=== PATIENT | male | born 1965 | race Caucasian/White ===

== ENCOUNTER 2020-12-19 20:46 | Emergency (ER) | payer BC ==
[2020-12-19] MEDS ORDERED: Sodium Chloride 0.9% 10 ML Syringe FLUSH PRN (21:45)
[2020-12-19] MEDS ORDERED: Lactated Ringers 1,000 ML IV SCH (21:45)
--- NOTE | 2020-12-19 21:50 | EDM.PDOC ---
ED HPI GENERAL MEDICAL PROBLEM - General Chief Complaint: Abdominal Pain Stated Complaint: R LOWER ABDOMINAL PAIN Time Seen by Provider: 12/19/20 21:37 Source of Information: Reports: Patient, Family, RN Notes Reviewed History Limitations: Reports: No Limitations - History of Present Illness INITIAL COMMENTS - FREE TEXT/NARRATIVE: 54-year-old gentleman presents emergency department day complaint of abdominal pain. He states his abdominal pain for about a week it has progressively gotten worse last night most intense right lower quadrant the pain has improved somewhat this morning he has pain with a bowel movement. No nausea no vomiting no shortness of breath or chest pain no symptomatologies history abdominal surgery hernia repair several years ago Right Lower Abdomen Pain Score (Numeric/FACES): 3 - Related Data Allergies Allergy/AdvReac Type Severity Reaction Status Date / Time No Known Allergies Allergy Verified 12/19/20 21:26 Home Meds: Home Meds NK [No Known Home Meds] 12/19/20 [History] Past Medical History Cardiovascular History: Reports: Hypertension - Infectious Disease History Infectious Disease History: Reports: Chicken Pox - Past Surgical History GI Surgical History: Reports: Hernia, Inguinal Social & Family History - Tobacco Use Tobacco Use Status *Q: Never Tobacco User Second Hand Smoke Exposure: No - Caffeine Use Caffeine Use: Reports: None - Alcohol Use Days Per Week of Alcohol Use: 4 Number of Drinks Per Day: 3 Total Drinks Per Week: 12 - Recreational Drug Use Recreational Drug Use: No ED ROS GENERAL - Review of Systems Review Of Systems: See Below Constitutional: Reports: No Symptoms Respiratory: Reports: No Symptoms Cardiovascular: Reports: No Symptoms GI/Abdominal: Reports: Abdominal Pain, Flatus. Denies: Constipation, Nausea, Vomiting : Reports: No Symptoms ED EXAM, GI/ABD - Physical Exam Exam: See Below Exam Limited By: No Limitations General Appearance: Alert, WD/WN, No Apparent Distress Respiratory/Chest: No Respiratory Distress GI/Abdominal Exam: Soft, No Distention, No Abnormal Bruit, Tender (rlq) Course - Vital Signs Last Recorded V/S: Last Vital Signs Temp 97.5 F 12/19/20 21:44 Pulse 65 12/19/20 21:44 Resp 12 12/19/20 21:44 BP 162/91 H 12/19/20 21:44 Pulse Ox 96 12/19/20 21:44 - Orders/Labs/Meds Orders: Active Orders 24 hr Category Date Time Status Peripheral IV Care [RC] . DIRECTED Care 12/19/20 21:45 Active Iopamidol [Isovue-300 (61%)] Med 12/19/20 22:05 Active 134 ml IV . DIRECTED PRN Lactated Ringers [Ringers, Lactated] 1,000 ml Med 12/19/20 21:45 Active IV ASDIRECTED Sodium Chloride 0.9% [Normal Saline] 100 ml Med 12/19/20 22:15 Active IV ASDIRECTED Sodium Chloride 0.9% [Saline Flush] Med 12/19/20 21:45 Active 10 ml FLUSH ASDIRECTED PRN Peripheral IV Insertion Adult [OM.PC] Urgent Oth 12/19/20 21:45 Ordered Medication Orders Lactated Ringer's (Ringers, Lactated) 1,000 mls @ 500 mls/hr IV ASDIRECTED HERNAN Last Admin: 12/19/20 22:27 Dose: 500 mls/hr Documented by: REGGIE Sodium Chloride (Normal Saline) 100 mls @ 3 mls/sec IV ASDIRECTED HERNAN Last Admin: 12/19/20 22:28 Dose: 3 mls/sec Documented by: TONYA Iopamidol (Iopamidol 612 Mg/Ml 150 Ml Bottle) 134 ml IV . DIRECTED PRN PRN Reason: RADIOLOGY EXAM Stop: 12/20/20 22:06 Last Admin: 12/19/20 22:28 Dose: 134 ml Documented by: ADELSOAG Sodium Chloride (Sodium Chloride 0.9% 10 Ml Syringe) 10 ml FLUSH ASDIRECTED PRN PRN Reason: Keep Vein Open Last Admin: 12/19/20 22:28 Dose: 10 ml Documented by: [email or web address] Labs: Laboratory Tests 12/19/20 12/19/20 12/19/20 Range/Units 21:27 22:03 22:03 WBC 7.4 (4.5-11.0) K/uL RBC 5.04 (4.30-5.90) M/uL Hgb 15.5 H (12.0-15.0) g/dL Hct 44.6 (40.0-54.0) % MCV 89 (80-98) fL MCH 31 (27-31) pg MCHC 35 (32-36) % Plt Count 227 (150-400) K/uL Neut % (Auto) 67.1 H (36-66) % Lymph % (Auto) 20.1 L (24-44) % [place] % (Auto) 11.3 H (2-6) % Eos % (Auto) 1.2 L (2-4) % Baso % (Auto) 0.3 (0-1) % Sodium 140 (140-148) mmol/L Potassium 4.2 (3.6-5.2) mmol/L Chloride 103 (100-108) mmol/L Carbon Dioxide 28 (21-32) mmol/L Anion Gap 9.0 (5.0-14.0) mmol/L BUN 12 (7-18) mg/dL Creatinine 1.0 (0.7-1.3) mg/dL Est Cr Clr Drug Dosing 80.79 mL/min Estimated GFR (MDRD) > 60 (>60) BUN/Creatinine Ratio Not Reportable Glucose 91 (74-106) mg/dL Lactic Acid (0.4-2.0) mmol/L Calcium 8.5 (8.5-10.1) mg/dL Total Bilirubin 0.5 (0.2-1.0) mg/dL AST 17 (15-37) U/L ALT 31 (12-78) U/L Alkaline Phosphatase 100 (46-116) U/L Troponin I < 0.017 (0.000-0.056) ng/mL Total Protein 6.6 (6.4-8.2) g/dL Albumin 3.7 (3.4-5.0) g/dL Globulin 2.9 (2.3-3.5) g/dL Albumin/Globulin Ratio 1.3 (1.2-2.2) Lipase 65 L (73-393) U/L Urine Color Yellow (YELLOW) Urine Appearance Clear (CLEAR) Urine pH 6.0 (5.0-8.0) Ur Specific [place] 1.020 (1.008-1.030) Urine Protein Negative (NEGATIVE) mg/dL Urine Glucose (UA) Negative (NEGATIVE) mg/dL Urine Ketones Negative (NEGATIVE) mg/dL Urine Occult Blood Negative (NEGATIVE) Urine Nitrite Negative (NEGATIVE) Urine Bilirubin Negative (NEGATIVE) Urine Urobilinogen 0.2 (0.2-1.0) EU/dL Ur Leukocyte Esterase Negative (NEGATIVE) Urine RBC 0-5 (0-5) Urine WBC 0-5 (0-5) Ur Epithelial Cells Rare Amorphous Sediment Occasional Urine Bacteria Occasional Urine Mucus Moderate // Range/Units 22:03 WBC (4.5-11.0) K/uL RBC (4.30-5.90) M/uL Hgb (12.0-15.0) g/dL Hct (40.0-54.0) % MCV (80-98) fL MCH (27-31) pg MCHC (32-36) % Plt Count (150-400) K/uL Neut % (Auto) (36-66) % Lymph % (Auto) (24-44) % [place] % (Auto) (2-6) % Eos % (Auto) (2-4) % Baso % (Auto) (0-1) % Sodium (140-148) mmol/L Potassium (3.6-5.2) mmol/L Chloride (100-108) mmol/L Carbon Dioxide (21-32) mmol/L Anion Gap (5.0-14.0) mmol/L BUN (7-18) mg/dL Creatinine (0.7-1.3) mg/dL Est Cr Clr Drug Dosing mL/min Estimated GFR (MDRD) (>60) BUN/Creatinine Ratio Glucose (74-106) mg/dL Lactic Acid 0.6 (0.4-2.0) mmol/L Calcium (8.5-10.1) mg/dL Total Bilirubin (0.2-1.0) mg/dL AST (15-37) U/L ALT (12-78) U/L Alkaline Phosphatase (46-116) U/L Troponin I (0.000-0.056) ng/mL Total Protein (6.4-8.2) g/dL Albumin (3.4-5.0) g/dL Globulin (2.3-3.5) g/dL Albumin/Globulin Ratio (1.2-2.2) Lipase (73-393) U/L Urine Color (YELLOW) Urine Appearance (CLEAR) Urine pH (5.0-8.0) Ur Specific [place] (1.008-1.030) Urine Protein (NEGATIVE) mg/dL Urine Glucose (UA) (NEGATIVE) mg/dL Urine Ketones (NEGATIVE) mg/dL Urine Occult Blood (NEGATIVE) Urine Nitrite (NEGATIVE) Urine Bilirubin (NEGATIVE) Urine Urobilinogen (0.2-1.0) EU/dL Ur Leukocyte Esterase (NEGATIVE) Urine RBC (0-5) Urine WBC (0-5) Ur Epithelial Cells Amorphous Sediment Urine Bacteria Urine Mucus Meds: Medications Generic Name Dose Route Start Last Admin Trade Name Frehannah PRN Reason Stop Dose Admin Lactated Ringer's 1,000 mls @ 500 mls/hr 12/19/20 21:45 12/19/20 22:27 Ringers, Lactated IV 500 mls/hr ASDIRECTED HERNAN Administration Sodium Chloride 100 mls @ 3 mls/sec 12/19/20 22:15 12/19/20 22:28 Normal Saline IV 3 mls/sec ASDIRECTED HERNAN Administration Iopamidol 134 ml 12/19/20 22:05 12/19/20 22:28 Iopamidol 612 Mg/Ml 150 Ml Bottle IV 12/20/20 22:06 134 ml . DIRECTED PRN Administration RADIOLOGY EXAM Sodium Chloride 10 ml 12/19/20 21:45 12/19/20 22:28 Sodium Chloride 0.9% 10 Ml Syringe FLUSH 10 ml ASDIRECTED PRN Administration Keep Vein Open Discontinued Medications Generic Name Dose Route Start Last Admin Trade Name Freq PRN Reason Stop Dose Admin Sodium Chloride 10 ml 12/19/20 22:05 12/19/20 22:27 Sodium Chloride 0.9% 10 Ml Sdv FLUSH 12/19/20 22:06 10 ml ONETIME ONE Administration Departure - Departure Time of Disposition: 00:16 Disposition: Home, Self-Care 01 Condition: Fair Clinical Impression: Epiploic appendagitis - Discharge Information Referrals: PCP,None [Primary Care Provider] - Forms: ED Department Discharge Additional Instructions: Try the MiraLAX for stool comfort, use ibuprofen for baseline pain control use hydrocodone for breakthrough pain, please follow-up with your primary care upon return home call return to the emergency department worsening symptoms Sepsis Event Note (ED) - Evaluation Sepsis Screening Result: No Definite Risk - Focused Exam Vital Signs: Vital Signs Temp Pulse Resp BP Pulse Ox 12/19/20 21:44 97.5 F 65 12 162/91 H 96 12/19/20 21:24 97.5 F 65 12 162/91 H 96 - My Orders Last 24 Hours: My Active Orders 12/19/20 21:45 Peripheral IV Care [RC] . DIRECTED Lactated Ringers [Ringers, Lactated] 1,000 ml IV ASDIRECTED Sodium Chloride 0.9% [Saline Flush] 10 ml FLUSH ASDIRECTED PRN Peripheral IV Insertion Adult [OM.PC] Urgent 12/19/20 22:05 Iopamidol [Isovue-300 (61%)] 134 ml IV . DIRECTED PRN 12/19/20 22:15 Sodium Chloride 0.9% [Normal Saline] 100 ml IV ASDIRECTED - Assessment/Plan Last 24 Hours: My Active Orders 12/19/20 21:45 Peripheral IV Care [RC] . DIRECTED Lactated Ringers [Ringers, Lactated] 1,000 ml IV ASDIRECTED Sodium Chloride 0.9% [Saline Flush] 10 ml FLUSH ASDIRECTED PRN Peripheral IV Insertion Adult [OM.PC] Urgent 12/19/20 22:05 Iopamidol [Isovue-300 (61%)] 134 ml IV . DIRECTED PRN 12/19/20 22:15 Sodium Chloride 0.9% [Normal Saline] 100 ml IV ASDIRECTED Plan: Assessment Acuity = acute Site and laterality = epiploic appendagitis Etiology = unknown Manifestations = abdominal pain Location of injury = Home Lab values = CBC, CMP, urinalysis, troponin all within normal limits CT scan describes the appendagitis Plan Prescription written for hydrocodone 5/325 1 tab p.o. 3 times daily as needed total #10 for pain control if needed continue with anti-inflammatories follow-up primary care upon return home if not better This note was dictated using [employer] voice recognition software please call with any questions on syntax or grammar.
[2020-12-19] MEDS ORDERED: Sodium Chloride 0.9% 10 ML SDV FLUSH ONE (22:05)
[2020-12-19] MEDS ORDERED: Iopamidol 612 MG/ML 150 ML Bottle IV PRN (22:05)
[2020-12-19] MEDS ORDERED: Sodium Chloride 0.9% 100 ML IV SCH (22:15)
--- NOTE | 2020-12-19 23:57 | CRLCT ---
For Patients: As a result of the Century Cures Act, medical imaging exams and procedure reports are released immediately into your electronic medical record. You may view this report before your referring provider. If you have questions, please contact your health care provider. INDICATION: Right lower quadrant pain TECHNIQUE: CT abdomen and pelvis acquired with IV contrast. 134 mL of Isovue-300 administered. COMPARISON: None available FINDINGS: Lower chest: Unremarkable. Liver: Unremarkable. Spleen: Splenomegaly measuring 15.4 cm anteroposteriorly. Pancreas: Unremarkable. Gallbladder and bile ducts: Unremarkable. Adrenal glands: A 1 cm predominantly fat attenuation right adrenal nodule compatible with a myelolipoma. Kidneys: No hydronephrosis. A left renal lower pole parapelvic cyst. A 1 cm left renal upper pole low-density lesion which appears near fat in attenuation suggestive of an angiomyolipoma. GI tract: No mechanical bowel obstruction. Borderline caliber of the proximal appendix, however without significant periappendiceal changes, and the remainder of the appendix is normal in caliber. An ovoid fat attenuation area with slight adjacent stranding along the anti mesenteric wall of the proximal ascending colon on image 84 series 2 compatible with possibly resolving epiploic appendagitis or a small regional omental infarct. Vascular structures: Mild atherosclerotic changes. Lymph nodes: No abnormally enlarged lymph nodes. Miscellaneous: No significant free fluid or free air. Slightly increased hazy attenuation in the central mesenteric fat, nonspecific. Fat containing inguinal hernias and a tiny fat containing umbilical hernia. Pelvic Organs: Grossly unremarkable prostate for age. Mild bladder wall prominence versus incomplete distention. Bones: Unremarkable for age. IMPRESSION: Findings compatible with right pericolonic epiploic appendagitis or a small omental infarct. Borderline caliber of the proximal appendix could be reactive, without significant periappendiceal changes to suggest acute appendicitis. The remainder of the appendix is decompressed and normal in caliber. Splenomegaly. A small right adrenal myelolipoma and a small left renal low-density lesion suggestive of an angiomyolipoma. Mild bladder wall prominence, mild cystitis versus underdistention. Dictated by Sunny Plata MD @ 12/19/2020 11:54:37 PM Please note that all CT scans at this facility use dose modulation, iterative reconstruction, and/or weight-based dosing when appropriate to reduce radiation dose to as low as reasonably achievable. Dictated by: Sunny Plata MD @ 12/19/2020 23:54:50 (Electronically Signed)
== END 2020-12-20 00:24 | disposition home or self-care (01) ==
LOC: JP.ED 20:46
DX: K63.89 Other specified diseases of intestine (principal); I10 Essential (primary) hypertension
CPT/HCPCS: 36415; 74177; 80053; 81001; 83605; 83690; 84484; 85025; 99284; J7120; Q9967